=== PATIENT | male | born 1945 | race Caucasian/White ===

== ENCOUNTER 2021-12-14 18:44 | Emergency (ER) | payer MEDICARE, BC ==
[2021-12-14 18:52] VITALS: BP 132/57; PULSE 92
[2021-12-14 19:49] LABS: ESTIMATED GFR 69 mL/min (>=60)
[2021-12-14 20:07] LABS: CHLORIDE,CL 89 mEq/L (98-106); SODIUM,NA 125 mEq/L (136-145)
== END 2021-12-14 20:30 | disposition home or self-care (01) ==
LOC: CC.ED 18:44
DX: R53.1 Weakness (principal); R42 Dizziness and giddiness; T43.225A Adverse effect of selective serotonin reuptake inhibitors, initial encounter; E87.1 Hypo-osmolality and hyponatremia; I10 Essential (primary) hypertension; E11.9 Type 2 diabetes mellitus without complications; F41.9 Anxiety disorder, unspecified; E78.00 Pure hypercholesterolemia, unspecified; F17.210 Nicotine dependence, cigarettes, uncomplicated; Z20.822 Contact with and (suspected) exposure to COVID-19; Z88.5 Allergy status to narcotic agent
CPT/HCPCS: 36415; 71046; 80053; 81001; 85025; 86140; 99284; 99285; U0002